=== PATIENT | male | born 1990 | race Caucasian/White ===

== ENCOUNTER 2018-06-11 19:03 | Emergency (ER) | payer BC ==
[~2018-06-11] VITALS: Ht 200.7 cm; Wt 106.6 kg
[2018-06-11] MEDS ORDERED: TOBRAMYCIN/DEXAMETHASONE(OPTH) 3.5 GM TUBE OP ONE ×2 (19:45→20:30)
[2018-06-11] MEDS ORDERED: BACITRACIN ZINC 0.9GM TP ONE (19:45)
[2018-06-11] MEDS ORDERED: ACETAMINOPHEN/CODEINE 300MG - 30MG TAB PO ONE (19:45)
[2018-06-11 20:20] VITALS: BP 134/81
== END 2018-06-11 20:34 | disposition home or self-care (01) ==
LOC: ER 19:03
DX: T20.16XA Burn of first degree of forehead and cheek, initial encounter (principal); T20.14XA Burn of first degree of nose (septum), initial encounter; T26.01XA Burn of right eyelid and periocular area, initial encounter; T31.0 Burns involving less than 10% of body surface; X04.XXXA Exposure to ignition of highly flammable material, initial encounter; Y93.G2 Activity, grilling and smoking food; Y92.008 Other place in unspecified non-institutional (private) residence as the place of occurrence of the external cause
CPT/HCPCS: 99283